=== PATIENT | male | born 2005 | race Caucasian/White ===

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

== ENCOUNTER 2024-08-18 19:58 | Emergency (ER) | payer SELFPAY ==
[~2024-08-18] VITALS: Ht 180.3 cm; Wt 90.7 kg
[2024-08-18 20:21] VITALS: BP_SYST 153; PULSE 95; RESP 18; TEMP 97.3; O2SAT 100
[2024-08-18] MEDS ORDERED: AUG875 PO (22:23)
[2024-08-18 22:30] VITALS: BP_SYST 153; PULSE 95; RESP 18; TEMP 97.3; O2SAT 100
== END 2024-08-18 22:30 | disposition home or self-care (01) ==
LOC: SED 19:58
DX: J02.9 Acute pharyngitis, unspecified (principal); F17.210 Nicotine dependence, cigarettes, uncomplicated; M54.2 Cervicalgia; Z79.2 Long term (current) use of antibiotics
CPT/HCPCS: 70490; 99284